=== PATIENT | female | born 1950 | race Two or more races ===

== ENCOUNTER 2025-09-30 11:17 | Emergency (ER) | payer OTHER ==
[~2025-09-30] VITALS: Ht 152.4 cm; Wt 48.5 kg
[2025-09-30] MEDS ORDERED: KETOROLAC TROMETHAMINE 30 MG VIAL IM STA (15:07)
[2025-09-30] MEDS ORDERED: KETOROLAC TROMETHAMINE 30 MG VIAL ONE (15:10)
[2025-09-30] MEDS ORDERED: DICLOFENAC POTA50 MG PO (17:35)
== END 2025-09-30 17:44 | disposition home or self-care (01) ==
LOC: ER 11:18
DX: G89.11 Acute pain due to trauma (principal); M79.642 Pain in left hand; M25.532 Pain in left wrist; M25.522 Pain in left elbow; M79.632 Pain in left forearm; T14.90XA Injury, unspecified, initial encounter
CPT/HCPCS: 73070; 73090; 73110; 73130; 96372; 99283; J1885